=== PATIENT | male | born 1975 | race Caucasian/White ===

== ENCOUNTER 2016-08-18 21:25 | Emergency (ER) | payer SELFPAY ==
[2016-08-18 21:31] VITALS: BP 140/85; PULSE 103; TEMP 98.9; BMI 19.5
== END 2016-08-19 00:47 | disposition left against medical advice (07) ==
LOC: JERFT 21:25 → JER 21:25
DX: Z53.21 Procedure and treatment not carried out due to patient leaving prior to being seen by health care provider (principal)
CPT/HCPCS: 99281-25

== ENCOUNTER 2018-02-26 17:08 | Emergency (ER) | payer SELFPAY ==
[2018-02-26 17:22] VITALS: TEMP 98.2; BMI 25.8
--- NOTE | 2018-02-26 17:22 | PDOC ---
Rapid Medical Evaluation Medical Evaluation: Allergies Allergy/AdvReac Type Severity Reaction Status Date / Time No Known Allergies Allergy Verified 02/26/18 17:16 I have performed a brief in-person evaluation of this patient. The patient presents with a chief complaint of: C/O palpitations today while sitting in back of car with numbness in L hand and blurred vision Patient mentions symptoms lasted a few minutes before subsiding on their own Has had anxiety in the past, but never a panic attack Denies fever, CP, SOB, abd pain, n/v, smoking/drug use Mentions having slight L sided chest pressure a few days which he was going to get evaluated by his PCP for, but did not have that today I have ordered the following: EKG, CBC, BMP, trop The patient will proceed to the ED for further evaluation. 02/26/18 17:17 02/26/18 17:22
[2018-02-26 17:43] LABS: BASO % 0.5 % (0-2.0); EOS % 1.8 % (0-4.5); HEMATOCRIT 44.3 % (35.4-49); HEMOGLOBIN 14.7 GM/dL (11.7-16.9); LYMPH % 45.5 % (8-40); MCH 31.1 pg (25.7-33.7); MCHC 33.2 g/dl (32.0-35.9); MEAN CELL VOLUME 93.8 fl (80-96); MEAN PLT VOLUME 8.2 fl (7.5-11.1); MONO % 6.9 % (3.8-10.2); NEUT % 45.3 % (42.8-82.8); PLATELET COUNT 220 K/MM3 (134-434); RBC 4.73 M/mm3 (4.00-5.60); RDW 13.4 % (11.9-15.9); WHITE BLOOD COUNT 7.9 K/mm3 (4.0-10.0)
--- NOTE | 2018-02-26 17:49 | PDOC ---
History of Present Illness - General History Source: Patient Exam Limitations: No Limitations - History of Present Illness Initial Comments: 02/26/18 19:52 The patient is a 43 year old male, with a significant past medical history of anxiety, who presents to the emergency department s/p palpitations. As per patient, he was in the car with his friend driving when he experienced a 7 minute episode of palpitations with associated left arm numbness and tingling. Patient notes this episode was similar to one he experienced approximately 5 years ago which he followed up with cardiology and it was diagnosed with anxiety. Patient recently had URI symptoms which he took NyQuil for. He denies any chest pain. He denies any recent fevers, chills, headache or dizziness. He denies any recent nausea, vomit, diarrhea or constipation. He denies any recent dysuria, frequency, urgency or hematuria. Allergies: NKDA Social History: Social alcohol usage (last drink 2 hours before the episode). Nonsmoker. Denies recreational drug use. Primary Care Physician: Dr. Cummings <Shelby Dial - Last Filed: 02/26/18 19:52> <Vanesa Fisher - Last Filed: 02/26/18 21:50> - General Chief Complaint: Palpitations Stated Complaint: PALPITATIONS Time Seen by Provider: 02/26/18 17:48 Past History <Shelby Dial - Last Filed: 02/26/18 19:52> - Past Medical History COPD: No - Immunization History Immunization Up to Date: Yes - Suicide/Smoking/Psychosocial Hx Smoking History: Never smoked Have you smoked in the past 12 months: No Hx Alcohol Use: Yes Drug/Substance Use Hx: No Substance Use Type: None <Vanesa Fisher - Last Filed: 02/26/18 21:50> - Past Medical History Allergies/Adverse Reactions: Allergies Allergy/AdvReac Type Severity Reaction Status Date / Time No Known Allergies Allergy Verified 02/26/18 17:16 Home Medications: Ambulatory Orders No Home Medications 0 dose .ROUTE UTDICT 08/19/13 Review of Systems - Review of Systems Able to Perform ROS?: Yes Comments:: 02/26/18 19:53 GENERAL/CONSTITUTIONAL: No fever or chills. No weakness. HEAD, EYES, EARS, NOSE AND THROAT: No change in vision. No ear pain or discharge. No sore throat. GASTROINTESTINAL: No nausea, vomiting, diarrhea or constipation. GENITOURINARY: No dysuria, frequency, or change in urination. +CARDIOVASCULAR: Palpitations. No chest pain or shortness of breath. RESPIRATORY: No cough, wheezing, or hemoptysis. MUSCULOSKELETAL: No joint or muscle swelling or pain. No neck or back pain. SKIN: No rash +NEUROLOGIC: Numbness to left arm. No headache, vertigo, loss of consciousness, or change in strength. ENDOCRINE: No increased thirst. No abnormal weight change. HEMATOLOGIC/LYMPHATIC: No anemia, easy bleeding, or history of blood clots. ALLERGIC/IMMUNOLOGIC: No hives or skin allergy. All Other Systems: Reviewed and Negative <Shelby Dial - Last Filed: 02/26/18 19:52> *Physical Exam - Vital Signs Last Vital Signs Temp Pulse Resp BP Pulse Ox 98.2 F 94 H 16 140/86 100 02/26/18 17:17 02/26/18 17:17 02/26/18 17:17 02/26/18 17:17 02/26/18 17:17 - Physical Exam Comments: 02/26/18 19:53 Constitutional: Awake, alert, oriented. No acute distress. Head: Normocephalic. Atraumatic Eyes: PERRL. EOMI. Conjunctivae are not pale. ENT: Mucous membranes are moist and intact. Posterior pharynx without exudates or erythema. Uvula midline. Neck: Supple. Full ROM. No lymphadenopathy. Cardiovascular: Regular rate. Regular rhythm. S1, S2 regular. Distal pulses are 2+ and symmetric. Pulmonary/Chest: No evidence of respiratory distress. Clear to auscultation bilaterally No wheezing, rales or rhonchi. Abdominal: Soft and non-distended. There is no tenderness. No rebound, guarding or rigidity. No organomegaly. No palpable masses. Good bowel sounds. Back: No CVA tenderness. Musculoskeletal: No edema. No cyanosis. No clubbing. Full range of motion in all extremities. No calf tenderness. Radial/pedal pulses are intact and 2+ bilaterally Skin: Skin is warm and dry. No petechiae. No purpura. Neurological: Alert, awake, appropriate. Cranial nerves 2-12 intact. No deficits to light touch and temperature in face, upper extremities and lower extremities. No motor deficits in the in face, upper extremities and lower extremities. No pronator drift. Normoreflexic in the upper and lower extremities. Normal speech. Toes are down-going bilaterally. Gait is normal without ataxia. Psychiatric: Good eye contact. Normal interaction, affect and behavior. <Shelby Dial - Last Filed: 02/26/18 19:52> - Vital Signs Last Vital Signs Temp Pulse Resp BP Pulse Ox 98.2 F 94 H 16 140/86 100 02/26/18 17:17 02/26/18 17:17 02/26/18 17:17 02/26/18 17:17 02/26/18 17:17 <Vanesa Fisher - Last Filed: 02/26/18 21:50> Heart Score/ECG Review - ECG Intrepretation Comment:: 02/26/18 17:53 sinus at 99, nl axis, nl interval, no acute st/t wave findings <Vanesa Fisher - Last Filed: 02/26/18 21:50> ED Treatment Course - LABORATORY CBC & Chemistry Diagram: 02/26/18 17:35 02/26/18 17:35 - ADDITIONAL ORDERS Additional order review: Laboratory Results 02/26/18 17:35 Sodium 137 Potassium 3.7 Chloride 105 Carbon Dioxide 25 Anion Gap 7 L BUN 11 Creatinine 0.9 Creat Clearance w eGFR > 60 Random Glucose 147 H Calcium 8.3 L Troponin I < 0.02 TSH 0.66 02/26/18 17:35 RBC 4.73 MCV 93.8 MCHC 33.2 RDW 13.4 MPV 8.2 Neutrophils % 45.3 D Lymphocytes % 45.5 H D Monocytes % 6.9 Eosinophils % 1.8 D Basophils % 0.5 - Medications Given in the ED: ED Medications Discontinued Medications Generic Name Dose Route Start Last Admin Trade Name Freq PRN Reason Stop Dose Admin Sodium Chloride 1,000 ml 02/26/18 18:33 02/26/18 18:50 Normal Saline - IV 02/26/18 18:34 1,000 ml ONCE ONE Administration <Shelby Dial - Last Filed: 02/26/18 19:52> - LABORATORY CBC & Chemistry Diagram: 02/26/18 17:35 02/26/18 17:35 - ADDITIONAL ORDERS Additional order review: 02/26/18 17:35 RBC 4.73 MCV 93.8 MCHC 33.2 RDW 13.4 MPV 8.2 Neutrophils % 45.3 D Lymphocytes % 45.5 H D Monocytes % 6.9 Eosinophils % 1.8 D Basophils % 0.5 <Vanesa Fisher - Last Filed: 02/26/18 21:50> Medical Decision Making - Medical Decision Making 02/26/18 18:31 a/p: 43yo male with 6 minute episode of palpitations assoc with feeling anxious and L arm tingling -hx of being dx with anxiety in the past -hx of palpitations that presented similarly in the past -has seen cardiology in the past for similar episodes and told he has anxiety -was prescribed anxiety medicine that he does not take -drinks socially and did drink a beer earlier today before the symptoms started -will check labs, tsh, ekg, cxr, head ct given L vision changes during the episode -low suspicion for tia or cva given anxious feeling -will monitor and reassess 02/26/18 21:[address] negative cxr clear repeat trop negative stable for dc to home will give cards follow up for further eval of palpitations <Vanesa Fisher - Last Filed: 02/26/18 21:50> *DC/Admit/Observation/Transfer - Attestations Scribe Attestion: 02/26/18 19:54 Documentation prepared by Shelby Dial, acting as medical authorization specialist for Vanesa Fisher DO. <Shelby Dial - Last Filed: 02/26/18 19:52> - Discharge Dispostion Decision to Admit order: No - Attestations Physician Attestion: 02/26/18 21:50 I, Dr. Vanesa Fisher DO, attest that this document has been prepared under my direction and personally reviewed by me in its entirety. I further attest, that it accurately reflects all work, treatment, procedures and medical decision -making performed by me. <Vanesa Fisher - Last Filed: 02/26/18 21:50> Diagnosis at time of Disposition: Palpitations - Discharge Dispostion Disposition: HOME Condition at time of disposition: Stable - Referrals Referrals: Steven Cummings MD [Primary Care Provider] - Omar Matt MD [Staff Physician] - - Patient Instructions Printed Discharge Instructions: DI for Palpitations Additional Instructions: Please follow up with your PMD. Please follow up with the tower watchman for further eval of your palpitations. Please return to the ED with any further concerns or complaints. - Post Discharge Activity
[2018-02-26 18:12] LABS: ANION GAP 7 MMOL/L (8-16); BLOOD UREA NITROGEN 11 mg/dL (7-18); CALCIUM 8.3 mg/dL (8.5-10.1); CHLORIDE 105 mmol/L (98-107); CO2 25 mmol/L (21-32); CREATININE 0.9 mg/dL (0.55-1.3); GLUCOSE,RANDOM 147 mg/dL (74-106); POTASSIUM 3.7 mmol/L (3.5-5.1); SODIUM 137 mmol/L (136-145)
[2018-02-26] MEDS ORDERED: SODIUM CHLORIDE 0.9% 1000 ML INFUS.BAG IV ONE (18:33)
[2018-02-26 22:27] VITALS: BP 131/85; PULSE 79
--- NOTE | 2018-02-27 12:02 | EKG ---
Test Reason : Blood Pressure : / mmHG Vent. Rate : 099 BPM Atrial Rate : 099 BPM P-R Int : 134 ms QRS Dur : 104 ms QT Int : 352 ms P-R-T Axes : 009 055 053 degrees QTc Int : 451 ms NORMAL SINUS RHYTHM NORMAL ECG WHEN COMPARED WITH ECG OF 30-APR-2014 09:30, NO SIGNIFICANT CHANGE WAS FOUND Confirmed by PORSCHE SEGOVIA MD ([id number]) on 02/27/2018 12:02:18 PM Referred By: Confirmed By:PORSCHE SEGOVIA MD
== END 2018-02-26 22:28 | disposition home or self-care (01) ==
LOC: JER 17:08
DX: R00.2 Palpitations (principal); F41.9 Anxiety disorder, unspecified
CPT/HCPCS: 36415; 70450-TC; 71046-TC-FY; 80048; 82550; 84443; 84484; 85025; 93005; 93010; 99282-25; J7030

== ENCOUNTER 2018-12-05 11:43 | Emergency (ER) | payer SELFPAY ==
[2018-12-05 12:09] VITALS: BMI 25.7
[2018-12-05 13:26] LABS: BASO % 0.5 % (0-2.0); EOS % 4.3 % (0-4.5); HEMATOCRIT 42.9 % (35.4-49); HEMOGLOBIN 14.5 GM/dL (11.7-16.9); LYMPH % 38.2 % (8-40); MCH 31.2 pg (25.7-33.7); MCHC 33.8 g/dl (32.0-35.9); MEAN CELL VOLUME 92.4 fl (80-96); MEAN PLT VOLUME 8.1 fl (7.5-11.1); MONO % 6.7 % (3.8-10.2); NEUT % 50.3 % (42.8-82.8); PLATELET COUNT 218 K/MM3 (134-434); RBC 4.64 M/mm3 (4.00-5.60); RDW 13.7 % (11.9-15.9)
[2018-12-05 13:40] LABS: ALBUMIN 4.1 g/dl (3.4-5.0); ALK PHOS 100 U/L (45-117); ANION GAP 5 MMOL/L (8-16); BILIRUBIN,TOTAL 0.7 mg/dL (0.2-1); CALCIUM 8.7 mg/dL (8.5-10.1); CHLORIDE 106 mmol/L (98-107); CO2 29 mmol/L (21-32); CREATININE 0.8 mg/dL (0.55-1.3); GLUCOSE,RANDOM 94 mg/dL (74-106); SGOT/AST 21 U/L (15-37); SGPT/ALT 39 U/L (13-61); SODIUM 140 mmol/L (136-145); TOT PROT 7.9 g/dl (6.4-8.2)
--- NOTE | 2018-12-05 15:08 | PDOC ---
Documentation entered by Shelby Dial SCRIBE, acting as scribe for Connor Echevarria MD. Connor Echevarria MD: This documentation has been prepared by the Yojana wagner Nirvannie, SCRIBE, under my direction and personally reviewed by me in its entirety. I confirm that the documentation accurately reflects all work, treatment, procedures, and medical decision making performed by me. History of Present Illness - General Chief Complaint: Chest Pain Stated Complaint: CHEST PAIN Time Seen by Provider: 12/05/18 11:59 History Source: Patient Exam Limitations: No Limitations - History of Present Illness Initial Comments: 12/05/18 14:16 The patient is a 43 year old male, with a significant past medical history of anxiety, who presents to the emergency department s/p episode of transient left arm numbness with associated dizziness. Pt states that he was at home cooking when he began to feel lightheaded, like he was going to faint. Denies LOC. Pt also endorses numbness in his L arm. Both symptoms lasted about 5 minutes before resolving spontaneously. Pt denies any active chest pain but states that he has had intermittent episodes of reproducible L sided chest pain over the past week. He denies any shortness of breath or palpitations. He denies any recent fevers, chills, or headache. He denies any recent nausea, vomiting, diarrhea or constipation. He denies any recent dysuria, frequency, urgency or hematuria. Allergies: NKDA Social History: Social alcohol usage. Nonsmoker. Denies recreational drug use. Primary Care Physician: Dr. Cummings Past History - Past Medical History Allergies/Adverse Reactions: Allergies Allergy/AdvReac Type Severity Reaction Status Date / Time No Known Allergies Allergy Verified 02/26/18 17:16 Home Medications: Ambulatory Orders No Home Medications 0 dose .ROUTE UTDICT 08/19/13 COPD: No - Immunization History Immunization Up to Date: Yes - Suicide/Smoking/Psychosocial Hx Smoking History: Never smoked Have you smoked in the past 12 months: No Hx Alcohol Use: Yes Drug/Substance Use Hx: No Substance Use Type: None Review of Systems - Review of Systems Able to Perform ROS?: Yes Comments:: 12/05/18 14:17 GENERAL/CONSTITUTIONAL: No fever or chills. No weakness. HEAD, EYES, EARS, NOSE AND THROAT: No change in vision. No ear pain or discharge. No sore throat. CARDIOVASCULAR: +chest pain. no shortness of breath, no loss of consciousness RESPIRATORY: No cough, wheezing, or hemoptysis. GASTROINTESTINAL: No nausea, vomiting, diarrhea or constipation. GENITOURINARY: No dysuria, frequency, or change in urination. MUSCULOSKELETAL: No joint or muscle swelling or pain. No neck or back pain. SKIN: No rash NEUROLOGIC: No vertigo, no change in strength/sensation. ENDOCRINE: No increased thirst. No abnormal weight change. HEMATOLOGIC/LYMPHATIC: No anemia, easy bleeding, or history of blood clots. ALLERGIC/IMMUNOLOGIC: No hives or skin allergy. All Other Systems: Reviewed and Negative *Physical Exam - Vital Signs Last Vital Signs Temp Pulse Resp BP Pulse Ox 98.8 F 73 19 122/82 99 12/05/18 11:43 12/05/18 11:43 12/05/18 11:43 12/05/18 11:43 12/05/18 11:43 - Physical Exam Comments: 12/05/18 15:16 "GENERAL: Awake, alert, and fully oriented, in no acute distress. HEAD: No signs of trauma EYES: PERRLA, EOMI, sclera anicteric, conjunctiva clear ENT: Auricles normal inspection, hearing grossly normal, nares patent, oropharynx clear without exudates. Moist mucosa NECK: Nontender, no stepoffs, Normal ROM, supple, no lymphadenopathy, JVD, or masses LUNGS: Breath sounds equal, clear to auscultation bilaterally. No wheezes, and no crackles HEART: Regular rate and rhythm, normal S1 and S2, no murmurs, rubs or gallops ABDOMEN: Soft, nontender, normoactive bowel sounds. No guarding, no rebound. No masses EXTREMITIES: Normal range of motion, no edema. No clubbing or cyanosis. No cords, erythema, or tenderness NEUROLOGICAL: Cranial nerves II through XII intact. 5/5 strength and sensation in all extremities, Normal speech, normal gait, normal cerebellar function SKIN: Warm, Dry, normal turgor, no rashes or lesions noted. Heart Score/ECG Review - History History: Slightly suspicious - Electrocardiogram EKG: Normal - Age Age: </= 45 - Risk Factors Risk Factors Heart Score: Yes Positive family hx of cardiac disease Based on the list above the patient has:: 1-2 risk factors - Troponin Troponin: </= normal limit - Score Heart Score - Total: 1 - ECG Impressions Comment:: 12/05/18 15:16 NSR, no YONG/STDs, no TWIs, axis wnl, intervals wnl, rate 71 ED Treatment Course - LABORATORY CBC & Chemistry Diagram: 12/05/18 13:01 12/05/18 13:01 Medical Decision Making - Medical Decision Making 12/05/18 15:16 43 M with transient episode of lightheadedness and L arm numbness. Pt now with no neuro deficits, normal exam. Unlikely CVA. Pt also with intermittent chest pain, will r/o ACS with serial trops. EKG nonischemic. - Labs, trop - CXR 12/05/18 15:50 Labs wnl, trop negative x 1 CXR clear Pending 2nd trop 12/05/18 17:13 trop negative x2 Pt is well appearing, with normal vitals. Clinically stable for DC at this time. I discussed the physical exam findings, ancillary test results and final diagnoses with the patient. I answered all of the patient's questions. The patient was satisfied with the care received and felt comfortable with the discharge plan and treatment plan. The patient agrees to follow up with the primary care physician within 24-72 hours. *DC/Admit/Observation/Transfer Diagnosis at time of Disposition: Chest pain, Left arm numbness, Lightheaded - Discharge Dispostion Disposition: HOME - Referrals Referrals: Osmin Chacon MD [Staff Physician] - - Patient Instructions Printed Discharge Instructions: DI for Atypical Chest Pain Additional Instructions: Please follow up with a hand box coverer within 1 week for further evaluation of your chest pain. Call the number provided to make an appointment. If you experience worsening chest pain, shortness of breath, weakness/numbness in your arm, or any other concerning symptoms, return to the ER immediately. - Post Discharge Activity - Attestations Physician Attestion: 12/05/18 15:52 I, Dr. Connor Echevarria MD, attest that this document has been prepared under my direction and personally reviewed by me in its entirety. I further attest, that it accurately reflects all work, treatment, procedures and medical decision -making performed by me.
[2018-12-05 17:31] VITALS: BP 119/79; PULSE 78; TEMP 97.9
--- NOTE | 2018-12-06 09:18 | EKG ---
Test Reason : Blood Pressure : / mmHG Vent. Rate : 071 BPM Atrial Rate : 071 BPM P-R Int : 150 ms QRS Dur : 098 ms QT Int : 396 ms P-R-T Axes : 016 057 056 degrees QTc Int : 430 ms NORMAL SINUS RHYTHM NORMAL ECG WHEN COMPARED WITH ECG OF 26-FEB-2018 17:17, NO SIGNIFICANT CHANGE WAS FOUND Confirmed by MYLES MALONEY MD ([id number]) on 12/06/2018 9:18:07 AM Referred By: Confirmed By:MYLES MALONEY MD
--- NOTE | 2018-12-07 12:48 | EKG ---
Test Reason : Blood Pressure : / mmHG Vent. Rate : 066 BPM Atrial Rate : 066 BPM P-R Int : 158 ms QRS Dur : 094 ms QT Int : 402 ms P-R-T Axes : 002 057 039 degrees QTc Int : 421 ms NORMAL SINUS RHYTHM NORMAL ECG WHEN COMPARED WITH ECG OF 05-DEC-2018 11:41, NO SIGNIFICANT CHANGE WAS FOUND Confirmed by Zach Kerr MD ([id number]) on 12/07/2018 12:48:29 PM Referred By: Confirmed By:Zach Kerr MD
== END 2018-12-05 17:31 | disposition home or self-care (01) ==
LOC: JER 11:43
DX: R07.9 Chest pain, unspecified (principal); R42 Dizziness and giddiness; M79.602 Pain in left arm
CPT/HCPCS: 36415; 71046-TC-FY; 80053; 82550; 84484; 85025; 93005; 93010; 99283-25

== ENCOUNTER 2019-06-12 19:52 | Emergency (ER) | payer SELFPAY ==
[2019-06-12 19:56] VITALS: TEMP 98; BMI 25.0
[2019-06-12] MEDS ORDERED: SODIUM CHLORIDE 0.9% 500 ML INFUS.BAG IV ONE (21:27)
[2019-06-12] MEDS ORDERED: KETOROLAC TROMETHAMINE 30 MG/1 ML VIAL IVPUSH ONE (21:27)
[2019-06-12 21:29] LABS: BASO % 0.6 % (0-2.0); EOS % 3.4 % (0-4.5); HEMATOCRIT 44.8 % (35.4-49); HEMOGLOBIN 15.1 GM/dL (11.7-16.9); LYMPH % 45.5 % (8-40); MCH 31.3 pg (25.7-33.7); MCHC 33.6 g/dl (32.0-35.9); MEAN CELL VOLUME 93.2 fl (80-96); MEAN PLT VOLUME 8.5 fl (7.5-11.1); MONO % 8.1 % (3.8-10.2); NEUT % 42.4 % (42.8-82.8); PLATELET COUNT 234 K/MM3 (134-434); RBC 4.81 M/mm3 (4.00-5.60); RDW 13.4 % (11.9-15.9); WHITE BLOOD COUNT 7.9 K/mm3 (4.0-10.0)
[2019-06-12] MEDS ORDERED: KETOROLAC TROMETHAMINE 30 MG/1 ML VIAL ONE (21:32)
--- NOTE | 2019-06-12 21:32 | PDOC ---
History of Present Illness - General Chief Complaint: Chest Pain Stated Complaint: CHEST PAIN Time Seen by Provider: 06/12/19 21:05 - History of Present Illness Initial Comments: 06/15/19 00:56 44M PMH anxiety, etoh abuse presenting with 4 days of constant left sided nonradiating chest pressure with pleuritic needle like left sided pain. also endorses neck pain radiating down left arm. denies sob, f/c, n/v, diaphoresis. endorses similar sx in past but no positive personal or family cardiac hx. No recent travel, surgeries, no h/o VTE. Denies etoh, smoking. Past History - Past Medical History Allergies/Adverse Reactions: Allergies Allergy/AdvReac Type Severity Reaction Status Date / Time No Known Allergies Allergy Verified 06/12/19 19:56 Home Medications: Ambulatory Orders No Home Medications 0 dose .ROUTE UTDICT 08/19/13 COPD: No - Immunization History Immunization Up to Date: Yes - Psycho Social/Smoking Cessation Hx Smoking History: Never smoked Have you smoked in the past 12 months: No Hx Alcohol Use: Yes Drug/Substance Use Hx: No Substance Use Type: None Review of Systems - Review of Systems Able to Perform ROS?: Yes Comments:: 06/15/19 00:56 CONSTITUTIONAL: Denies F / C HEENT: endorses mild blurry vision of the left eye x 4 days. Denies headache, lightheadedness, dizziness, sore throat, rhinorrhea RESP: Denies SOB, cough CARD: endorses chest pain GI: Denies N / V / D, abdominal pain : Denies dysuria SKIN: Denies rashes NEURO: Denies numbness, tingling, weakness MSK: Denies back pain *Physical Exam - Vital Signs Last Vital Signs Temp Pulse Resp BP Pulse Ox 98.0 F 78 18 148/77 99 06/12/19 19:54 06/12/19 19:54 06/12/19 19:54 06/12/19 19:54 06/12/19 19:54 - Physical Exam 06/15/19 00:56 GEN: Well appearing, NAD, comfortable. AAOx3. HEENT: NC/AT, CN II-XII intact, EOMI, PERRL, 20/20 visual acuity b/l. No facial asymmetry. Normal voice. Supple neck w/ FROM. CV: Sx relieved w/ pressure applied to left pectoralis area. S1/S2, RRR, no m/r/g LUNG: CTAB, no wheezes, crackles, rales, rhonchi. GI: Soft, ndnt, +BS, no guarding, no rebound. No masses. MSK: No obvious deformities of all extremities. SKIN: Warm, dry, no rashes appreciated. PSYCH: Normal mood and affect; pleasant NEURO: Moving all extremities well. 5/5 strength UE LE b/l; symmetric intact sensation Heart Score/ECG Review - History History: Slightly suspicious - Electrocardiogram EKG: Non specific repolarization disturbance - Age Age: </= 45 - Risk Factors Based on the list above the patient has:: No risk factors known ED Treatment Course - LABORATORY CBC & Chemistry Diagram: 06/12/19 21:10 06/12/19 21:10 Medical Decision Making - Medical Decision Making 06/12/19 21:31 44M w/ 4 days of left sided chest pressure and pleuritic needle like chest pain. DDX - r/o ACS; consider MSK; PERC neg.; atraumatic unlikely PTX - CBC, CMP, Cardiac - CXR, EKG - Pain ctrl 06/12/19 21:50 EKG 2106 HR 76 [place] 148 QRS 108 QTc 429; NSR; ?iRBBB RSR' on V2? 06/12/19 22:05 labs reviewed, reassuring neg trop 06/12/19 22:44 pt feels better; did not f/u w/ cardiology since last visit for same sx. stressed importance of f/u w/ cardiology. DC'd home Discharge - Discharge Information Problems reviewed: Yes Clinical Impression/Diagnosis: Chest pain Condition: Stable Disposition: HOME - Admission No - Follow up/Referral Referrals: Tacos Cr MD [Primary Care Provider] - Steven Cummings MD [Staff Physician] - Omar Matt MD [Staff Physician] - Osmin Chacon MD [Staff Physician] - - Patient Discharge Instructions Patient Printed Discharge Instructions: DI for Atypical Chest Pain Additional Instructions: Your lab work, EKG, and x-ray were reassuring. Refrain from strenuous activity for next 3 days. Follow up with your primary care doctor in the next 3-5 days. Follow up with your [facility] in the next 1-3 days; if you do not have one you can call one of the cardiologists below to schedule an appointment. Return to the Emergency Department if you experience: - worsening or changing pain - shortness of breath - anything that concerns you - Post Discharge Activity
[2019-06-12 21:59] LABS: ALBUMIN 4.2 g/dl (3.4-5.0); ALK PHOS 130 U/L (45-117); ANION GAP 9 MMOL/L (8-16); BILIRUBIN,TOTAL 0.4 mg/dL (0.2-1); BLOOD UREA NITROGEN 12.9 mg/dL (7-18); CALCIUM 8.6 mg/dL (8.5-10.1); CHLORIDE 107 mmol/L (98-107); CO2 27 mmol/L (21-32); CREATININE 0.8 mg/dL (0.55-1.3); GLUCOSE,RANDOM 95 mg/dL (74-106); MAGNESIUM 2.4 mg/dL (1.8-2.4); PHOSPHOROUS 3.4 mg/dL (2.5-4.9); POTASSIUM 3.9 mmol/L (3.5-5.1); SGOT/AST 21 U/L (15-37); SGPT/ALT 41 U/L (13-61); SODIUM 142 mmol/L (136-145); TOT PROT 8.4 g/dl (6.4-8.2)
--- NOTE | 2019-06-12 23:01 | PDOC ---
Documentation entered by Shelby Dial SCRIBE, acting as scribe for Michela Willis MD. Michela Willis MD: This documentation has been prepared by the Yojana wagner Nirvannie, SCRIBE, under my direction and personally reviewed by me in its entirety. I confirm that the documentation accurately reflects all work, treatment, procedures, and medical decision making performed by me. Attending Attestation - Resident Resident Name: RamonTim - ED Attending Attestation I have performed the following: I have examined & evaluated the patient, The case was reviewed & discussed with the resident, I agree w/resident's findings & plan, Exceptions are as noted - HPI HPI: 06/12/19 22:20 The patient is a 44 year old male, with a significant past medical history of anxiety and alcohol abuse, who presents to the emergency department with 4 days of constant left sided chest pain described as a pressure-like. He notes associated left sided neck pain radiating down the arm and 4 days intermittent blurred vision. He denies any fevers or chills. Allergies: NKDA Primary Care Physician: Dr. Miri Cr - Physicial Exam PE: 06/12/19 23:00 Well-nourished well-developed 44-year-old male with 4 days of atypical chest pain Head normocephalic atraumatic Neck no bruits no thrills, supple Lungs are clear to auscultation bilaterally CVS regular rate and rhythm S1-S2 Abdomen is soft, ninth nontender No flank pain Skin warm and dry Extremities no lower extremity edema Neuro alert and oriented x3, ambulatory, no gross focal neuro deficits - Medical Decision Making 06/12/19 23:00 Chest x-ray within normal limits Negative troponin CBC and chemistries essentially unremarkable Patient has had chest pain before and was encouraged at this time follow-up with Dr. Cummings and to get his echo as has been recommended in the past 06/12/19 23:01 Impression atypical chest pain
[2019-06-12 23:36] VITALS: BP 140/78; PULSE 88
--- NOTE | 2019-06-13 09:32 | EKG ---
Test Reason : Blood Pressure : / mmHG Vent. Rate : 076 BPM Atrial Rate : 076 BPM P-R Int : 148 ms QRS Dur : 108 ms QT Int : 382 ms P-R-T Axes : 009 066 051 degrees QTc Int : 429 ms NORMAL SINUS RHYTHM INCOMPLETE RIGHT BUNDLE BRANCH BLOCK BORDERLINE ECG WHEN COMPARED WITH ECG OF 05-DEC-2018 15:49, NO SIGNIFICANT CHANGE WAS FOUND Confirmed by Coleman Ohara ([id number]) on 06/13/2019 9:31:47 AM Referred By: Confirmed By:Coleman Ohara
== END 2019-06-12 23:34 | disposition home or self-care (01) ==
LOC: JER 19:52
PROC: 3E0333Z Introduction of Anti-inflammatory into Peripheral Vein, Percutaneous Approach (ICD-10-PCS; principal; 2019-06-12)
DX: R07.9 Chest pain, unspecified (principal)
CPT/HCPCS: 36415; 71046-TC-FY; 80053; 82550; 83735; 84100; 84484; 85025; 93005; 93010; 99285-25

== ENCOUNTER 2019-12-01 18:33 | Emergency (ER) | payer SELFPAY ==
[2019-12-01 18:53] VITALS: BMI 24.2
--- NOTE | 2019-12-01 19:05 | PDOC ---
History of Present Illness - General Chief Complaint: Shortness of Breath Stated Complaint: DIZZINESS/ SOB Time Seen by Provider: 12/01/19 19:04 History Source: Patient Exam Limitations: No Limitations - History of Present Illness Initial Comments: 44M with hx/o anxiety presents with SOB with associated left sided chest tightness that's nonexertional and pleuritic, and lasts about 30 minutes. He also reports associated palpitations that improve with unknown medication prescribed for anxiety. He also reports left arm numbness. He has presented similarly multiple times in the past. Reports orthopnea, lightheadedness. Denies fever, cough, syncope, n/v, abdominal pain, LE edema. PMH: as in HPI SH: none Meds: Allergies: NKDA Tob/Etoh/Rec drugs: neg x3 PCP: [facility] GENERAL/CONSTITUTIONAL: No fever or chills. No weakness. HEENT: No change in vision. No ear pain or discharge. No sore throat. CARDIOVASCULAR: +chest pain, +shortness of breath RESPIRATORY: No cough, wheezing, or hemoptysis GASTROINTESTINAL: No nausea, vomiting, diarrhea or constipation. GENITOURINARY: No dysuria, frequency, or change in urination. MUSCULOSKELETAL: No joint or muscle swelling or pain. No neck or back pain. SKIN: No rash NEUROLOGIC: No headache, vertigo, loss of consciousness, or change in strength/sensation. ENDOCRINE: No increased thirst. No abnormal weight change HEMATOLOGIC/LYMPHATIC: No anemia, easy bleeding, or history of blood clots. ALLERGIC/IMMUNOLOGIC: No hives or skin allergy. PE GENERAL: Awake, alert, and fully oriented, in no acute distress HEAD: No signs of trauma, normocephalic, atraumatic EYES: PERRLA, EOMI, sclera anicteric, conjunctiva clear ENT: Auricles normal inspection, hearing grossly normal, nares patent, oropharynx clear without exudates. Moist mucosa NECK: Normal ROM, supple, no LAD, JVD, or masses HEART: Regular rate and rhythm, normal S1 and S2, no murmurs, rubs or gallops, peripheral pulses normal and equal bilaterally. LUNGS: No distress, speaks full sentences, clear to auscultation bilaterally ABDOMEN: Soft, nontender. No guarding. No masses EXTREMITIES: Normal inspection, Normal range of motion, no edema. No clubbing or cyanosis. NEUROLOGICAL: Normal speech, no focal sensorimotor deficits SKIN: Warm, Dry, normal turgor, no rashes or lesions noted Assessment and Plan 1. ACS r/o - EKG, CXR, CBC, CMP, coags, troponin 2. Anxiety/Panic disorder 3. GERD - pepcid trial 4. PE - Low risk Well's, PERC negative David Saleem, PGY1 Emergency Medicine Past History - Medical History Allergies/Adverse Reactions: Allergies Allergy/AdvReac Type Severity Reaction Status Date / Time No Known Allergies Allergy Verified 12/01/19 18:47 Home Medications: Ambulatory Orders No Home Medications 0 dose .ROUTE UTDICT 08/19/13 COPD: No - Immunization History Td Vaccination: Yes TDAP Vaccination: Yes Immunization Up to Date: Yes - Psycho-Social/Smoking History Smoking History: Never smoked Have you smoked in the past 12 months: No Information on smoking cessation initiated: No - Substance Abuse Hx (Audit-C & DAST Scrn) How often the patient has a drink containing alcohol: Never Score: In Men: 4 or > Positive; In Women: 3 or > Positive: 0 Screen Result (Pos requires Nsg. Audit-10AR): Negative In the last yr the pt used illegal drug/Rx for NonMed reason: No Score: Yes response is considered Positive: 0 Screen Result (Positive result requires Nsg. DAST-10): Negative *Physical Exam - Vital Signs Last Vital Signs Temp Pulse Resp BP Pulse Ox 98.3 F 86 18 140/85 100 12/01/19 18:37 12/01/19 18:37 12/01/19 18:37 12/01/19 18:37 12/01/19 18:37 ED Treatment Course - LABORATORY CBC & Chemistry Diagram: 12/01/19 20:20 12/01/19 20:20 Medical Decision Making - Medical Decision Making 44M with hx/o anxiety presents with SOB with associated left sided chest tightness, palpitations, and L arm numbness. Presented similar in the past, and referred to cardio with dx of anxiety. DDx: anxiety/panic disorder, arrhythmia, ACS r/o, GERD, muscle strain -Patient reports improvement of palpitations with prn anxiety meds -EKG showed new T wave inversion in V2, otherwise consistent with past EKG's -1st trop neg, 2nd trop negative. Unlikely ACS. -CBC and coags unremarkable -Pt felt improved after pepcid and reassurance. Pt stated that he was concerned about nasal turbinate swelling which contributed to SOB which provoked his panic attack. Will d/c home to follow up with PCP Discharge - Discharge Information Problems reviewed: Yes Clinical Impression/Diagnosis: Anxiety Condition: Stable Disposition: HOME - Admission No - Follow up/Referral - Patient Discharge Instructions Patient Printed Discharge Instructions: DI for Panic Disorder Additional Instructions: You were seen in the ED for complaints of SOB with palpitations, chest pain, and anxiousness. In the ED you were evaluated with EKG, CXR, and bloodwork which were all normal. There does not appear to be an acute need for immediate hospitalization. You are advised to follow up with your Primary Care Physician within 1 week. Return to the ED immediately if you experience chest pain, passing out, shortness of breath, or rapid heart rate that doesn't improve with your home dose of anxiety medications. - Post Discharge Activity
[2019-12-01] MEDS ORDERED: FAMOTIDINE 20 MG TABLET PO ONE (19:43)
[2019-12-01] MEDS ORDERED: FAMOTIDINE 20 MG TABLET ONE (20:14)
[2019-12-01 21:07] LABS: BASO % 0.5 % (0-2.0); EOS % 2.7 % (0-4.5); HEMOGLOBIN 13.3 GM/dL (11.7-16.9); LYMPH % 34.4 % (8-40); MCH 31.4 pg (25.7-33.7); MEAN CELL VOLUME 92.4 fl (80-96); MONO % 6.6 % (3.8-10.2); NEUT % 55.8 % (42.8-82.8); PLATELET COUNT 191 K/MM3 (134-434); RBC 4.22 M/mm3 (4.00-5.60); RDW 13.3 % (11.9-15.9); WHITE BLOOD COUNT 6.8 K/mm3 (4.0-10.0)
[2019-12-01 21:18] LABS: INR 0.94 (0.83-1.09); PROTHROMBIN TIME (PATIENT) 11.1 SEC (9.7-13.0)
[2019-12-01 21:20] LABS: ACTIVATED PTT 30.6 SECONDS (25.2-36.5)
[2019-12-01 21:55] LABS: ALBUMIN 3.7 g/dl (3.4-5.0); ALK PHOS 104 U/L (45-117); ANION GAP 7 MMOL/L (8-16); BILIRUBIN,TOTAL 0.4 mg/dL (0.2-1); BLOOD UREA NITROGEN 13.6 mg/dL (7-18); CALCIUM 8.4 mg/dL (8.5-10.1); CHLORIDE 107 mmol/L (98-107); CO2 25 mmol/L (21-32); CREATININE 0.8 mg/dL (0.55-1.3); GLUCOSE,RANDOM 105 mg/dL (74-106); POTASSIUM 4.4 mmol/L (3.5-5.1); SGOT/AST 34 U/L (15-37); SGPT/ALT 30 U/L (13-61); SODIUM 139 mmol/L (136-145); TOT PROT 7.4 g/dl (6.4-8.2)
--- NOTE | 2019-12-01 22:16 | PDOC ---
Attending Attestation - Resident Resident Name: Kaity Saleemtis - ED Attending Attestation I have performed the following: I have examined & evaluated the patient, The case was reviewed & discussed with the resident, I agree w/resident's findings & plan, Exceptions are as noted - HPI HPI: 12/02/19 07:49 See resident HPI - Physicial Exam PE: 12/02/19 07:49 Agree with documented exam - Medical Decision Making 12/02/19 07:49 Pleuritic CP with atypical features a/w sob Atypical cp in low risk pt, low risk wells PERC neg f/u labs, ekg, cxr, trend CE dispo per clinical course Discharge - Discharge Information Problems reviewed: Yes Clinical Impression/Diagnosis: Anxiety Condition: Stable Disposition: HOME - Follow up/Referral - Patient Discharge Instructions Patient Printed Discharge Instructions: DI for Panic Disorder Additional Instructions: You were seen in the ED for complaints of SOB with palpitations, chest pain, and anxiousness. In the ED you were evaluated with EKG, CXR, and bloodwork which were all normal. There does not appear to be an acute need for immediate hospitalization. You are advised to follow up with your Primary Care Physician within 1 week. Return to the ED immediately if you experience chest pain, passing out, shortness of breath, or rapid heart rate that doesn't improve with your home dose of anxiety medications. - Post Discharge Activity
[2019-12-02 01:10] VITALS: BP 114/69; PULSE 69; TEMP 98
--- NOTE | 2019-12-07 13:16 | EKG ---
Test Reason : Blood Pressure : / mmHG Vent. Rate : 083 BPM Atrial Rate : 083 BPM P-R Int : 150 ms QRS Dur : 106 ms QT Int : 386 ms P-R-T Axes : 011 057 056 degrees QTc Int : 453 ms NORMAL SINUS RHYTHM INCOMPLETE RIGHT BUNDLE BRANCH BLOCK BORDERLINE ECG Confirmed by MD DEVON, PARVIN ([id number]) on 12/07/2019 1:15:49 PM Referred By: Confirmed By:PARVIN OSORIO MD
== END 2019-12-02 01:15 | disposition home or self-care (01) ==
LOC: JER 18:33
DX: F41.9 Anxiety disorder, unspecified (principal)
CPT/HCPCS: 36415; 71045-TC-FY; 80053; 82550; 84484; 85025; 85610; 85730; 93005; 93010; 99283-25

== ENCOUNTER 2020-04-10 20:10 | Observation (INO) | payer OTHER ==
[2020-04-10 20:25] VITALS: BMI 25.2
[2020-04-10 21:18] LABS: BASO % 0.3 % (0-2.0); HEMATOCRIT 40.6 % (35.4-49); LYMPH % 40.3 % (8-40); MCH 32.1 pg (25.7-33.7); MCHC 34.4 g/dl (32.0-35.9); MEAN CELL VOLUME 93.4 fl (80-96); MEAN PLT VOLUME 8.6 fl (7.5-11.1); MONO % 7.8 % (3.8-10.2); NEUT % 48.6 % (42.8-82.8); PLATELET COUNT 209 K/MM3 (134-434); RBC 4.35 M/mm3 (4.00-5.60); RDW 13.2 % (11.9-15.9); WHITE BLOOD COUNT 7.8 K/mm3 (4.0-10.0)
[2020-04-10 21:44] LABS: CHLORIDE 109 mmol/L (98-107); SODIUM 143 mmol/L (136-145)
[2020-04-10 21:46] LABS: CALCIUM 8.1 mg/dL (8.5-10.1)
[2020-04-10 21:47] LABS: ALBUMIN 3.8 g/dl (3.4-5.0); ANION GAP 6 MMOL/L (8-16); BLOOD UREA NITROGEN 14.2 mg/dL (7-18); CO2 28 mmol/L (21-32); GLUCOSE,RANDOM 120 mg/dL (74-106)
[2020-04-10 21:50] LABS: SGOT/AST 25 U/L (15-37); SGPT/ALT 45 U/L (13-61)
[2020-04-10 21:52] LABS: BILIRUBIN,TOTAL 0.4 mg/dL (0.2-1); TOT PROT 7.4 g/dl (6.4-8.2)
[2020-04-10 21:53] LABS: ALK PHOS 108 U/L (45-117)
[2020-04-11] MEDS ORDERED: diazePAM 5 MG TABLET PO PRN (03:27)
[2020-04-11 06:45] LABS: BASO % 0.5 % (0-2.0); EOS % 3.7 % (0-4.5); HEMATOCRIT 41.5 % (35.4-49); HEMOGLOBIN 13.9 GM/dL (11.7-16.9); MCH 31.4 pg (25.7-33.7); MCHC 33.4 g/dl (32.0-35.9); MEAN CELL VOLUME 93.9 fl (80-96); MEAN PLT VOLUME 8.7 fl (7.5-11.1); MONO % 6.7 % (3.8-10.2); NEUT % 42.1 % (42.8-82.8); PLATELET COUNT 194 K/MM3 (134-434); RBC 4.42 M/mm3 (4.00-5.60); RDW 13.3 % (11.9-15.9); WHITE BLOOD COUNT 6.6 K/mm3 (4.0-10.0)
[2020-04-11 07:10] LABS: CHLORIDE 109 mmol/L (98-107); SODIUM 141 mmol/L (136-145)
[2020-04-11 07:15] LABS: ALBUMIN 3.6 g/dl (3.4-5.0); ANION GAP 7 MMOL/L (8-16); BLOOD UREA NITROGEN 13.7 mg/dL (7-18); CALCIUM 8.3 mg/dL (8.5-10.1); CO2 25 mmol/L (21-32); GLUCOSE,RANDOM 93 mg/dL (74-106)
[2020-04-11 07:18] LABS: CHOLESTEROL 176 mg/dL (50-200); CREATININE 0.8 mg/dL (0.55-1.3); SGOT/AST 19 U/L (15-37); SGPT/ALT 41 U/L (13-61); TRIGLYCERIDES 225 mg/dL (0-150)
[2020-04-11 07:19] LABS: BILIRUBIN,TOTAL 0.5 mg/dL (0.2-1); LDL CHOLESTEROL (ONLY SJRH) 110 mg/dL (5-100); TOT PROT 7.3 g/dl (6.4-8.2)
[2020-04-11 07:20] LABS: ALK PHOS 107 U/L (45-117)
[2020-04-11 07:21] LABS: HDL CHOLESTEROL 31 mg/dL (40-60)
[2020-04-11] MEDS ORDERED: ASPIRIN 81 MG CHEWABLE TABLETS ONE (09:18)
[2020-04-11] MEDS ORDERED: ASPIRIN 81 MG CHEWABLE TABLETS PO SCH (10:00)
[2020-04-11 14:28] VITALS: BP 118/69; PULSE 80; TEMP 99
== END 2020-04-11 14:28 | disposition home or self-care (01) ==
LOC: JER 20:10 → JERBED 22:13
PROVIDERS: ADMIT Internal Medicine; ATTEND Internal Medicine
DX: F41.9 Anxiety disorder, unspecified (principal); R00.2 Palpitations; M79.602 Pain in left arm; R06.00 Dyspnea, unspecified; R07.9 Chest pain, unspecified; R20.2 Paresthesia of skin; R42 Dizziness and giddiness; Z20.822 Contact with and (suspected) exposure to COVID-19
CPT/HCPCS: 36415; 71046-TC-FY; 80053; 80061; 82550; 83721; 84443; 84484; 85025; 93005; 93010; 99285-25; C9803; G0378; U0003

== ENCOUNTER 2020-05-13 19:23 | Emergency (ER) | payer OTHER ==
[2020-05-13 19:31] VITALS: TEMP 98.9; BMI 25.0
[2020-05-13 20:29] LABS: BASO % 0.5 % (0-2.0); EOS % 3.1 % (0-4.5); HEMATOCRIT 40.4 % (35.4-49); MCH 32.2 pg (25.7-33.7); MCHC 34.6 g/dl (32.0-35.9); MEAN CELL VOLUME 92.9 fl (80-96); MEAN PLT VOLUME 8.3 fl (7.5-11.1); MONO % 6.5 % (3.8-10.2); NEUT % 48.9 % (42.8-82.8); PLATELET COUNT 221 K/MM3 (134-434); RBC 4.34 M/mm3 (4.00-5.60); RDW 13.2 % (11.9-15.9); WHITE BLOOD COUNT 6.9 K/mm3 (4.0-10.0)
[2020-05-13 20:59] LABS: CHLORIDE 105 mmol/L (98-107); POTASSIUM 3.8 mmol/L (3.5-5.1); SODIUM 138 mmol/L (136-145)
[2020-05-13 21:02] LABS: ANION GAP 6 MMOL/L (8-16); BLOOD UREA NITROGEN 15.5 mg/dL (7-18); CALCIUM 8.3 mg/dL (8.5-10.1); CO2 27 mmol/L (21-32); GLUCOSE,RANDOM 148 mg/dL (74-106)
[2020-05-13 21:05] LABS: CREATININE 0.9 mg/dL (0.55-1.3); SGOT/AST 27 U/L (15-37); SGPT/ALT 52 U/L (13-61)
[2020-05-13 21:07] LABS: BILIRUBIN,TOTAL 0.2 mg/dL (0.2-1); TOT PROT 7.8 g/dl (6.4-8.2)
[2020-05-13 21:08] LABS: ALK PHOS 121 U/L (45-117)
[2020-05-13 21:38] VITALS: BP 129/83; PULSE 85
== END 2020-05-13 21:39 | disposition home or self-care (01) ==
LOC: JER 19:23
DX: R07.9 Chest pain, unspecified (principal); F41.9 Anxiety disorder, unspecified; R00.2 Palpitations
CPT/HCPCS: 36415; 71046-TC-FY; 80053; 82550; 84484; 85025; 93005; 93010; 99285-25

== ENCOUNTER 2020-09-27 00:38 | Emergency (ER) | payer OTHER ==
[2020-09-27 01:21] VITALS: TEMP 98.2; BMI 24.5
[2020-09-27] MEDS ORDERED: FAMOTIDINE 20 MG/50 ML IVPB 20 MG/50 ML MG IVPB ONE ×2 (02:34→02:43)
[2020-09-27] MEDS ORDERED: ACETAMINOPHEN 500 MG TABLET (FP) PO ONE (02:34)
[2020-09-27] MEDS ORDERED: ONDANSETRON 4 MG/2 ML VIAL IVPUSH ONE (02:34)
[2020-09-27] MEDS ORDERED: SODIUM CHLORIDE 1,000 ML IV STA (02:34)
[2020-09-27] MEDS ORDERED: MAG HYDROX/AL HYDROX/SIMETH 30 ML UNIT-DOSE CUP PO ONE (02:34)
[2020-09-27] MEDS ORDERED: ACETAMINOPHEN 325 MG TABLET (FP) ONE (02:42)
[2020-09-27] MEDS ORDERED: MAG HYDROX/AL HYDROX/SIMETH 30 ML UNIT-DOSE CUP ONE (02:43)
[2020-09-27] MEDS ORDERED: ONDANSETRON 4 MG/2 ML VIAL ONE (02:43)
[2020-09-27 03:30] LABS: BASO % 0.3 % (0-2.0); EOS % 3.4 % (0-4.5); HEMATOCRIT 40.3 % (35.4-49); HEMOGLOBIN 13.8 GM/dL (11.7-16.9); LYMPH % 38.6 % (8-40); MCH 31.6 pg (25.7-33.7); MCHC 34.3 g/dl (32.0-35.9); MEAN CELL VOLUME 91.9 fl (80-96); MONO % 8.4 % (3.8-10.2); NEUT % 49.3 % (42.8-82.8); PLATELET COUNT 213 10^3/uL (134-434); RBC 4.38 M/mm3 (4.00-5.60); RDW 13.8 % (11.9-15.9); WHITE BLOOD COUNT 6.9 K/mm3 (4.0-10.0)
[2020-09-27 03:50] LABS: CHLORIDE 105 mmol/L (98-107); SODIUM 139 mmol/L (136-145)
[2020-09-27 03:52] LABS: CALCIUM 8.6 mg/dL (8.5-10.1)
[2020-09-27 03:54] LABS: ALBUMIN 3.9 g/dl (3.4-5.0); ANION GAP 5 MMOL/L (8-16); BLOOD UREA NITROGEN 11.8 mg/dL (7-18); CO2 28 mmol/L (21-32); GLUCOSE,RANDOM 113 mg/dL (74-106); LIPASE 103 U/L (73-393); MAGNESIUM 2.4 mg/dL (1.8-2.4)
[2020-09-27 03:56] LABS: SGOT/AST 21 U/L (15-37); SGPT/ALT 42 U/L (13-61)
[2020-09-27 03:57] LABS: BILIRUBIN,TOTAL 0.6 mg/dL (0.2-1); TOT PROT 7.6 g/dl (6.4-8.2)
[2020-09-27 03:59] LABS: ALK PHOS 102 U/L (45-117)
[2020-09-27 05:08] LABS: CREATININE 0.8 mg/dL (0.55-1.3)
[2020-09-27 08:34] VITALS: BP 120/78; PULSE 66
== END 2020-09-27 08:35 | disposition home or self-care (01) ==
LOC: JER 00:38
PROC: 3E033NZ Introduction of Analgesics, Hypnotics, Sedatives into Peripheral Vein, Percutaneous Approach (ICD-10-PCS; principal; 2020-09-27)
PROC: 3E033GC Introduction of Other Therapeutic Substance into Peripheral Vein, Percutaneous Approach (ICD-10-PCS; 2020-09-27)
PROC: 3E0337Z Introduction of Electrolytic and Water Balance Substance into Peripheral Vein, Percutaneous Approach (ICD-10-PCS; 2020-09-27)
DX: R10.13 Epigastric pain (principal); R07.9 Chest pain, unspecified
CPT/HCPCS: 36415; 71275-TC; 80053; 82550; 83690; 83735; 84484; 85025; 93005; 93010; 99285-25

== ENCOUNTER 2021-01-18 10:59 | Emergency (ER) | payer OTHER ==
[2021-01-18 11:28] VITALS: BP 129/77; PULSE 91; TEMP 98.8; BMI 25.0
[2021-01-18] MEDS ORDERED: FAMOTIDINE 20 MG TABLET PO ONE (11:48)
[2021-01-18] MEDS ORDERED: ACETAMINOPHEN 500 MG TABLET (FP) PO ONE (11:48)
[2021-01-18] MEDS ORDERED: MAG HYDROX/AL HYDROX/SIMETH -MYLANTA- ORAL SUSPENSION PO ONE (11:48)
[2021-01-18] MEDS ORDERED: ACETAMINOPHEN 325 MG TABLET (FP) ONE ×2 (11:54→12:03)
[2021-01-18] MEDS ORDERED: FAMOTIDINE 20 MG TABLET ONE (11:55)
[2021-01-18] MEDS ORDERED: MAG HYDROX/AL HYDROX/SIMETH 30 ML UNIT-DOSE CUP ONE (11:55)
[2021-01-18 12:29] LABS: BASO % 0.5 % (0-2.0); EOS % 3.4 % (0-4.5); HEMATOCRIT 39.9 % (35.4-49); HEMOGLOBIN 13.7 GM/dL (11.7-16.9); LYMPH % 43.5 % (8-40); MCH 32.1 pg (25.7-33.7); MCHC 34.5 g/dl (32.0-35.9); MEAN CELL VOLUME 93.1 fl (80-96); MEAN PLT VOLUME 8.3 fl (7.5-11.1); MONO % 6.4 % (3.8-10.2); NEUT % 46.2 % (42.8-82.8); PLATELET COUNT 208 10^3/uL (134-434); RBC 4.28 M/mm3 (4.00-5.60); RDW 13.5 % (11.9-15.9); WHITE BLOOD COUNT 5.7 K/mm3 (4.0-10.0)
[2021-01-18 12:55] LABS: CHLORIDE 108 mmol/L (98-107); SODIUM 139 mmol/L (136-145)
[2021-01-18 12:58] LABS: ALBUMIN 3.5 g/dl (3.4-5.0); ANION GAP 5 MMOL/L (8-16); BLOOD UREA NITROGEN 9.3 mg/dL (7-18); CALCIUM 8.4 mg/dL (8.5-10.1); CO2 26 mmol/L (21-32); GLUCOSE,RANDOM 101 mg/dL (74-106)
[2021-01-18 13:01] LABS: SGPT/ALT 37 U/L (13-61)
[2021-01-18 13:02] LABS: CREATININE 0.9 mg/dL (0.55-1.3); SGOT/AST 21 U/L (15-37)
[2021-01-18 13:03] LABS: BILIRUBIN,TOTAL 0.6 mg/dL (0.2-1); TOT PROT 7.5 g/dl (6.4-8.2)
[2021-01-18 13:04] LABS: ALK PHOS 87 U/L (45-117)
== END 2021-01-18 14:26 | disposition home or self-care (01) ==
LOC: JER 10:59
DX: R07.9 Chest pain, unspecified (principal)
CPT/HCPCS: 36415; 80053; 82550; 83690; 84484; 85025; 93005; 93010; 99284-25

== ENCOUNTER 2021-05-22 05:02 | Emergency (ER) | payer OTHER ==
[2021-05-22 05:36] VITALS: BMI 25.2
[2021-05-22 06:53] LABS: BASO % 0.4 % (0-2.0); EOS % 4.4 % (0-4.5); HEMOGLOBIN 13.6 GM/dL (11.7-16.9); LYMPH % 48.6 % (8-40); MCH 31.1 pg (25.7-33.7); MCHC 33.1 g/dl (32.0-35.9); MEAN CELL VOLUME 94.2 fl (80-96); MEAN PLT VOLUME 8.7 fl (7.5-11.1); MONO % 7.7 % (3.8-10.2); NEUT % 38.9 % (42.8-82.8); PLATELET COUNT 218 10^3/uL (134-434); RBC 4.35 M/mm3 (4.00-5.60); WHITE BLOOD COUNT 5.7 K/mm3 (4.0-10.0)
[2021-05-22 07:36] VITALS: TEMP 97.8
[2021-05-22 07:56] LABS: CALCIUM 8.5 mg/dL (8.5-10.1)
[2021-05-22 07:57] LABS: ALBUMIN 3.8 g/dl (3.4-5.0); BLOOD UREA NITROGEN 11.3 mg/dL (7-18); MAGNESIUM 2.3 mg/dL (1.8-2.4)
[2021-05-22 08:00] LABS: CREATININE 0.8 mg/dL (0.55-1.3); PHOSPHOROUS 3.5 mg/dL (2.5-4.9)
[2021-05-22 08:01] LABS: BILIRUBIN,TOTAL 0.3 mg/dL (0.2-1); TOT PROT 7.5 g/dl (6.4-8.2)
[2021-05-22 10:42] VITALS: BP 118/82; PULSE 75
== END 2021-05-22 10:05 | disposition home or self-care (01) ==
LOC: JER 05:02
DX: R00.0 Tachycardia, unspecified (principal)
CPT/HCPCS: 36415; 71046-TC-FY; 80053; 83735; 84100; 84443; 84484; 85025; 93005; 93010; 99285-25

== ENCOUNTER 2021-07-31 13:29 | Emergency (ER) | payer OTHER ==
[2021-07-31 13:38] VITALS: BMI 24.6
[2021-07-31 15:05] VITALS: BP 111/67; PULSE 65; TEMP 98
== END 2021-07-31 15:07 | disposition home or self-care (01) ==
LOC: JER 13:29
DX: I10 Essential (primary) hypertension (principal)
CPT/HCPCS: 93005; 93010; 99283-25

== ENCOUNTER 2024-03-05 07:16 | Emergency (ER) | payer OTHER ==
[2024-03-05 07:30] VITALS: BP 131/85; PULSE 73; RESP 18; TEMP 98; BMI 26.6
[2024-03-05] MEDS ORDERED: FAMOTIDINE 20 MG/50 ML IVPB 20 MG/50 ML MG IVPB ONE (08:13)
[2024-03-05] MEDS ORDERED: ACETAMINOPHEN INJECTION 100 ML ONE (08:13)
[2024-03-05] MEDS: ACETAMINOPHEN 1000 MG/100 ML BAG IVPB ONE (08:32)
[2024-03-05] MEDS: FAMOTIDINE 20 MG/50 ML IVPB 20 MG/50 ML MG IVPB ONE (08:32)
[2024-03-05 08:38] LABS: BASO % 0.4 % (0-2.0); EOS % 2.9 % (0-4.5); HEMATOCRIT 45.5 % (35.4-49); HEMOGLOBIN 14.7 GM/dL (11.7-16.9); LYMPH % 48.8 % (8-40); MCH 30.6 pg (25.7-33.7); MCHC 32.3 g/dl (32.0-35.9); MEAN CELL VOLUME 94.7 fl (80-96); MEAN PLT VOLUME 8.5 fl (7.5-11.1); MONO % 5.2 % (3.8-10.2); NEUT % 42.7 % (42.8-82.8); PLATELET COUNT 219 10^3/uL (134-434); RDW 13.5 % (11.9-15.9); WHITE BLOOD COUNT 6.3 K/mm3 (4.0-10.0)
[2024-03-05] MEDS ORDERED: MAG HYDROX/AL HYDROX/SIMETH 30 ML UNIT-DOSE CUP ONE (08:43)
[2024-03-05] MEDS ORDERED: SUCRALFATE 1 GM TABLET (FP) ONE (08:43)
[2024-03-05] MEDS ORDERED: PANTOPRAZOLE SODIUM 40 MG VIAL ONE (08:44)
[2024-03-05] MEDS: SUCRALFATE 1 GM TABLET (FP) PO ONE (08:45)
[2024-03-05] MEDS: PANTOPRAZOLE SODIUM 40 MG VIAL IVPUSH ONE (08:45)
[2024-03-05] MEDS: MAG HYDROX/AL HYDROX/SIMETH 30 ML UNIT-DOSE CUP PO ONE (08:45)
[2024-03-05 08:50] LABS: INR 0.96 (0.83-1.09); PROTHROMBIN TIME (PATIENT) 11.1 SEC (9.7-13.0)
[2024-03-05 08:53] LABS: ACTIVATED PTT 29.8 SECONDS (25.2-36.5)
[2024-03-05 09:11] LABS: POTASSIUM 4.2 mmol/L (3.5-5.1)
[2024-03-05 09:13] LABS: BLOOD UREA NITROGEN 12.7 mg/dL (7-18); CALCIUM 9.6 mg/dL (8.5-10.1)
[2024-03-05 09:14] LABS: ALBUMIN 4.2 g/dl (3.4-5.0); MAGNESIUM 2.3 mg/dL (1.8-2.4)
[2024-03-05 09:17] LABS: CREATININE 0.9 mg/dL (0.55-1.3)
[2024-03-05 09:18] LABS: TOT PROT 8.4 g/dl (6.4-8.2)
[2024-03-05 12:49] LABS: HIV INTERPRETATION NEGATIVE (NEGATIVE)
== END 2024-03-05 14:25 | disposition home or self-care (01) ==
LOC: JER 07:16
PROC: 3E033GC Introduction of Other Therapeutic Substance into Peripheral Vein, Percutaneous Approach (ICD-10-PCS; principal; 2024-03-05)
PROC: 3E033NZ Introduction of Analgesics, Hypnotics, Sedatives into Peripheral Vein, Percutaneous Approach (ICD-10-PCS; 2024-03-05)
PROC: 3E033GC Introduction of Other Therapeutic Substance into Peripheral Vein, Percutaneous Approach (ICD-10-PCS; 2024-03-05)
DX: R07.2 Precordial pain (principal); R05.9 Cough, unspecified; Z20.822 Contact with and (suspected) exposure to COVID-19
CPT/HCPCS: 0241U-QW; 36415; 71046-TC-FY; 71275-TC; 80053; 83735; 84484; 85025; 85379; 85610; 85730; 86803; 87389; 93005; 93010; 99285-25; J0131; Q9967